=== PATIENT | female | born 1950 | race Caucasian/White ===

== ENCOUNTER 2017-02-27 10:15 | Emergency (ER) | payer MEDICARE, OTHER ==
[~2017-02-27 10:15] MED LIST: ALBUTEROL20 ml INH; AMLODIPINE BESY10 MG PO; LANSOPRAZOLE30 MG PO; LISINOPRIL20 MG PO; PRAVACHOL80 MG PO; PREMARIN0.625 MG PO; PROTONIX PO; TRAMADOL HCL50 M1 PO; TRAMADOL PO; VIT B 12 PO; VITAMIN D
[2017-05-15] MEDS ORDERED: MUCINEX D ER T1 EAC1 PO (15:51)
== END 2017-02-27 15:19 | disposition left against medical advice (07) ==
LOC: CED 10:15
DX: Z53.21 Procedure and treatment not carried out due to patient leaving prior to being seen by health care provider (principal)

== ENCOUNTER → 2017-03-27 | Outpatient (CLI) | payer MEDICARE, OTHER ==
[~2017-03-27] MED LIST changes: +MUCINEX D ER T1 EAC1 PO
== END | disposition home or self-care (01) ==
LOC: CECH 13:33
DX: R60.0 Localized edema (principal); I34.0 Nonrheumatic mitral (valve) insufficiency
CPT/HCPCS: 93306

== ENCOUNTER → 2017-05-18 | Day surgery (SDC) | payer MEDICARE, OTHER ==
--- NOTE | ~2017-05-18 | OR ---
Unit #: [id number] #: [id number] Patient: GEOVANNA GUEVARA [id number] [address] [address] [id number] O MR#: [id number] NAME: GEOVANNA GUEVARA. ROOM: Date of Procedure: 05/18/2017 Admission Date: 05/18/2017 Surgeon: Jonel Valenzuela Jr., M.D. : 1950 Attending Physician: Jonel Valenzuela Jr., M.D. Primary Care Physician: Lubna Govea Aprn OPERATIVE REPORT INDICATIONS FOR PROCEDURE The patient is a 66-year-old white female, who recently presented to the office complaining of progressive intractable acid reflux symptoms with some esophageal dysphagia and she is brought in this time for upper endoscopy to rule out significant esophageal stenosis versus esophagitis or occult ulcer disease. PREOPERATIVE DIAGNOSES Dysphagia with intractable reflux. POSTOPERATIVE DIAGNOSES 2+ ulcerative distal esophagitis with mild esophageal stenosis, multiple benign-appearing gastric polyps with no other abnormalities. ANESTHESIA MAC anesthesia. PROCEDURES PERFORMED Flexible fiberoptic esophagogastroduodenoscopy with antral biopsy for Helicobacter pylori and biopsies of the gastric polyps found as well as esophageal dilatation from 18 to 20 mm. DESCRIPTION OF PROCEDURE The patient was positioned in Thomas position with left side down. After being given MAC anesthesia, the Olympus XQ scope was passed through the proximal esophagus. Entire esophagus was examined. There was no evidence of any abnormalities of the proximal two-thirds of the esophagus. In the area of the GE junction, there were multiple small ulcerations compatible with ulcerative 2+ distal esophagitis with mild stenosis. The scope was advanced through the GE junction and the cardia, and down to the fundic and antral region of the stomach and retroflexed back up to the area of the cardia. There was no obvious hiatal hernia present. The stomach distended well without evidence of rigidity. No evidence of any gastric ulcer disease. There were some patchy areas of mild atrophic gastritis. A biopsy was taken from the antrum for H pylori without significant bleeding and there were some small fundic polyps as well as polyps in the antrum. These were biopsied and sent for pathology without bleeding. The scope was then advanced through the pylorus into the duodenal bulb and down to the second portion of the duodenum, which appeared normal. The scope was slowly removed from the area of the fundus. An 18 to 20 mm balloon dilator was placed and brought up in the distal esophagus and the distal esophagus was dilated from 18 to 20 mm slowly with no evidence of Unit #: [id number] #: [id number] Patient: GEOVANNA GUEVARA any perforation, tears, or significant bleeding. The distal esophagus was checked after the dilatation and appeared reasonable. The scope was removed. The patient tolerated the procedure well and discharged in satisfactory condition. Dictated by... Jonel Valenzuela Jr., M.D. JMB/nancy TD: 05/18/2017 19:34 JOB #: [id number] OPERATIVE REPORT Page 1 of 1 X Jonel Valenzuela MD X PROCEDURE OPERATIVE NOTE
== END | disposition home or self-care (01) ==
LOC: COPS 12:41
DX: K31.7 Polyp of stomach and duodenum (principal); K22.10 Ulcer of esophagus without bleeding; K22.2 Esophageal obstruction; K29.70 Gastritis, unspecified, without bleeding; J45.909 Unspecified asthma, uncomplicated; I10 Essential (primary) hypertension; K21.9 Gastro-esophageal reflux disease without esophagitis; E78.00 Pure hypercholesterolemia, unspecified; M81.0 Age-related osteoporosis without current pathological fracture; M06.9 Rheumatoid arthritis, unspecified; Z87.891 Personal history of nicotine dependence; Z88.1 Allergy status to other antibiotic agents; Z88.8 Allergy status to other drugs, medicaments and biological substances; Z79.899 Other long term (current) drug therapy; Z90.710 Acquired absence of both cervix and uterus; Z90.49 Acquired absence of other specified parts of digestive tract; Z98.890 Other specified postprocedural states
CPT/HCPCS: 87077; 88305; 88312; J2250